=== PATIENT | female | born 1960 | race Caucasian/White ===

== ENCOUNTER → 2017-11-13 | Outpatient (CLI) | payer OTHER ==
[~2017-11-13] MED LIST: ALLDSR/24 PO; ATEN-173 PO; BCPILLS PO; BUDESUS NAE
== END | disposition home or self-care (01) ==
LOC: C.PAPS 17:58
PROVIDERS: ATTEND Family Medicine
DX: Z12.4 Encounter for screening for malignant neoplasm of cervix (principal)